=== PATIENT | female | born 1980 ===

== ENCOUNTER 2021-07-25 19:20 | Emergency (ER) | payer OTHER, SELFPAY ==
--- NOTE | ~2021-07-25 | XR_ITS ---
EXAMINATION: XR CHEST CLINICAL INFORMATION: Shortness of breath COMPARISON: None TECHNIQUE: Frontal view of the chest was obtained. FINDINGS: No significant abnormality is noted involving the heart, lungs, mediastinum, bony thorax or soft tissues. XR/XR chest 1V IMPRESSION: Unremarkable examination.
[2021-07-25 19:58] LABS: COVID-19 Test Positive (Negative); IDNOW Serial# 08D9AD1C
[2021-07-25 21:16] VITALS: BP 142/64; PULSE 84; RESP 16; TEMP 36.5; O2SAT 99; BMI 37.2
== END 2021-07-26 00:31 | disposition left against medical advice (07) ==
LOC: HO.ED 07-26 00:20
PROVIDERS: Emergency Provider Emergency Medicine
DX: U07.1 COVID-19 (principal); R06.02 Shortness of breath; J45.909 Unspecified asthma, uncomplicated
CPT/HCPCS: 36415; 71045; 87635; 99282; 99283

== ENCOUNTER 2021-12-08 18:47 | Emergency (ER) | payer OTHER, SELFPAY ==
[2021-12-08 19:39] VITALS: BP 129/64; PULSE 88; RESP 17; TEMP 36.1; O2SAT 99; BMI 35.0
[2021-12-08] MEDS: Ondansetron ODT 4 MG TAB.RAPDIS SUBLINGUAL (19:57)
[2021-12-08 20:11] LABS: Appearance Urine HAZY; Color Urine YELLOW; Glucose Urine UA NEG (NEG); Leukocyte Esterase Urine 1+ (NEG); Nitrite Urine NEG (NEG); PH 6.5 (5.0-8.0); UACC Culture Trigger YES; Urine Blood 2+ (NEG); Urine Ketones NEG (NEG); Urine Protein TRACE MG/DL (NEG-TRACE)
[2021-12-08 20:14] LABS: UPreg QC Valid YES; Urine Pregnancy NEGATIVE (NEGATIVE)
[2021-12-08 20:36] LABS: Bacteria Urine TRACE /LPF; Squamous Epithelial Cell Urine 2+ /LPF
[2021-12-08 20:37] LABS: Mucus Urine 2+ /LPF; WBC Clumps Urine NOTED
== END 2021-12-09 00:12 | disposition left against medical advice (07) ==
PROVIDERS: Emergency Provider Emergency Medicine
DX: M54.9 Dorsalgia, unspecified (principal); R35.0 Frequency of micturition
CPT/HCPCS: 81001; 81025; 87086; 99283